=== PATIENT | female | born 1955 | race Caucasian/White ===

== ENCOUNTER → 2016-11-24 | Outpatient (CLI) | payer BC ==
[~2016-11-24] MED LIST: BLOOD PRESSURE MED PO; ULTRAM PO
--- NOTE | ~2016-11-24 | MY11 ---
[facility] A Service [facility] RADIOLOGY TEXT RESULTS PATIENT: FRED MORTON LOCATION: [facility] : 55 UNIT #: [id number] AGE: [address]: Selina Horn MD SEX: F ORDER DR: [id number] [place] [id number] O MR#: [id number] Acc #: [id number] NAME: FRED MORTON : 1955 SEX: F STUDY DATE/TIME: 11/24/2016 9:59 UNIT: [facility] ROOM: STUDY DESCRIPTION: MY Mammogram Screening Dig Jhonny Attending Physician: Selina Horn M.D. Referring Physician: Selina Horn M.D. Ordering Physician: Selina Horn M.D. Primary Care Physician: Selina Horn M.D. MEDICAL IMAGING REPORT This report is preliminary unless electronic signature is present. EXAM Bilateral digital screening mammogram with CAD INDICATION Routine screening. No current complaints. No family history of breast cancer. COMPARISON 08/06/2015, 02/09/2014, 02/07/2013. FINDINGS MLO and CC digital views of each breast were obtained. The exam was reviewed with an FDA-approved CAD device. There are scattered fibroglandular densities present. There are no masses or abnormal calcifications. There has been no change. IMPRESSION No change. No evidence of malignancy. Patients over the age of 40 are entered into a reminder system with target due date for the next mammogram. A result letter will also be sent to the patient. BIRADS: 1 Negative Dictated by... Georges Cote M.D. [facility] A Service [facility] RADIOLOGY TEXT RESULTS PATIENT: FRED MORTON LOCATION: [facility] : 55 UNIT #: [id number] AGE: [address]: Selina Horn MD SEX: F ORDER DR: THIS IS AN ELECTRONICALLY VERIFIED REPORT Georges Cote M.D. at 11/24/2016 3:17 PM LUDA/kathi TD: 11/24/2016 13:50 JOB #: [id number] MEDICAL IMAGING REPORT Page 1 of 1
== END | disposition home or self-care (01) ==
LOC: SMAM 09:14
DX: Z12.31 Encounter for screening mammogram for malignant neoplasm of breast (principal)
CPT/HCPCS: G0202